=== PATIENT | male | born 1960 | race Caucasian/White ===

== ENCOUNTER 2020-12-18 17:30 | Inpatient (IN) | payer OTHER ==
[~2020-12-18] VITALS: Ht 167.6 cm; Wt 43.6 kg
[~2020-12-18 17:30] MED LIST: ACET325T51 PO; AMLO-258 PO; ASCO500T10 PO; BISA10S PR; DOCU-116 PO; LACT10SO9 PO; LACT1CAP78 PO; MOM30 PO; MULT-1271 PO; NITR0.4T SL; ONDA4SOL2 PO; PROT946L PO; TYL3 PO; ZINC1CAP3 PO
[2020-12-18 18:45] LABS: BASOPHILS % (AUTO) 0.2 % (0.0-5.0); LYMPHOCYTES % (AUTO) 2.3 % (21.0-51.0); MEAN CORPUSCULAR HEMOGLOBIN 28.6 pg (27.0-33.0); MEAN CORPUSCULAR HGB CONC 29.9 g/dL (32.0-36.0); MEAN CORPUSCULAR VOLUME 95.5 fL (79-99); MONOCYTES % (AUTO) 2.4 % (3.0-13.0); NEUTROPHILS % (AUTO) 93.4 % (40.0-77.0); PLATELET COUNT (AUTO) 458 K/uL (130-400); RED BLOOD CELL COUNT(AUTO) 1.54 MIL/uL (4.50-6.20); RED CELL DISTRIBUTION WIDTH 14.5 % (11.0-15.5); WHITE BLOOD COUNT (AUTO) 26.7 K/uL (4.8-10.8)
[2020-12-18 18:57] LABS: HEMATOCRIT 14.7 % (42-54)
[2020-12-18] MEDS ORDERED: ZOSYN 3.375GM+NS 50ML 50 ML IV ONE (19:18)
[2020-12-18] MEDS ORDERED: VANCOMYCIN 1G/250ML KIT 250 ML IV ONE (19:20)
[2020-12-18 19:25] LABS: INR 1.16 (0.85-1.15); PROTHROMBIN TIME 12.5 SEC (9.6-11.6)
[2020-12-18 19:27] LABS: PARTIAL THROMBOPLASTIN TIME 28.8 SEC (26.3-35.5)
[2020-12-18 19:42] LABS: BILIRUBIN,TOTAL 0.6 mg/dL (0.2-1.0); CREATININE 2.4 mg/dL (0.5-1.5); POTASSIUM 4.7 mmol/L (3.5-5.1); TOTAL PROTEIN, SERUM 7.6 g/dL (6.0-8.3)
[2020-12-19] MEDS ORDERED: VANCOMYCIN PROTOCOL PER PHARMACY IV SCH (12:00)
[2020-12-19] MEDS: 0.9%NACL 1000ML 1,000 ML IV SCH (12:00)
[2020-12-19 13:10] LABS: BASOPHILS % (AUTO) 0.2 % (0.0-5.0); EOSINOPHILS % (AUTO) 0.1 % (0.0-8.0); HEMATOCRIT 26.2 % (42-54); LYMPHOCYTES % (AUTO) 4.2 % (21.0-51.0); MEAN CORPUSCULAR HEMOGLOBIN 28.7 pg (27.0-33.0); MEAN CORPUSCULAR HGB CONC 32.1 g/dL (32.0-36.0); MEAN CORPUSCULAR VOLUME 89.4 fL (79-99); MONOCYTES % (AUTO) 3.2 % (3.0-13.0); NEUTROPHILS % (AUTO) 90.9 % (40.0-77.0); PLATELET COUNT (AUTO) 349 K/uL (130-400); RED BLOOD CELL COUNT(AUTO) 2.93 MIL/uL (4.50-6.20); RED CELL DISTRIBUTION WIDTH 14.7 % (11.0-15.5); WHITE BLOOD COUNT (AUTO) 18.9 K/uL (4.8-10.8)
[2020-12-19] MEDS ORDERED: PHARMACY COMMUNICATION MISC SCH (13:15)
[2020-12-19 13:20] LABS: CREATININE 2.2 mg/dL (0.5-1.5); POTASSIUM 4.7 mmol/L (3.5-5.1)
[2020-12-19 13:27] LABS: ALBUMIN 1.7 g/dL (3.5-5.0); TOTAL PROTEIN, SERUM 6.4 g/dL (6.0-8.3)
[2020-12-19] MEDS: PANTOPRAZOLE 40 MG/VIAL IVP SCH (14:15)
[2020-12-19 16:10] LABS: HEMATOCRIT 24.4 % (42-54)
[2020-12-19] MEDS ORDERED: PANTOPRAZOLE 40 MG/VIAL ONE (18:27)
[2020-12-19] MEDS ORDERED: GLUCAGON 1MG KIT 1 MG ML IM PRN (19:30)
[2020-12-19] MEDS ORDERED: KCL 20 MEQ ERTAB PO PRN (19:30)
[2020-12-19] MEDS ORDERED: LIDOCAINE HCL-MPF 1% 2ML VIAL IV PRN ×2 (19:30)
[2020-12-19] MEDS ORDERED: DEXTROSE 50%-WATER 50 ML DISP.SYRIN IV PRN (19:30)
[2020-12-19] MEDS ORDERED: POTASSIUM CHLORIDE 20MEQ/100ML 100 ML IV PRN ×2 (19:30)
[2020-12-19] MEDS ORDERED: MORPHINE 2 MG SYG IVP PRN (19:30)
[2020-12-19] MEDS ORDERED: MAGNESIUM 2GM PREMIX 50ML 50 ML IV PRN (19:30)
[2020-12-19] MEDS ORDERED: POTASSIUM CHLORIDE 10% ELIXIR 20 MEQ/15 ML UDCUP PO PRN (19:30)
[2020-12-19] MEDS: INSULIN HUMULIN R 100 UNIT/ML 3ML SQ SCH (21:00)
[2020-12-19] MEDS: ZOSYN 3.375GM+NS 50ML 50 ML IV SCH (21:00)
[2020-12-19 22:24] LABS: HEMATOCRIT 23.4 % (42-54)
[2020-12-19 23:29] VITALS: BP 110/62
[2020-12-20] VITALS: BP 110/62
[2020-12-20] MEDS: 0.9%NACL 1000ML 1,000 ML IV SCH ×2 (01:49→15:51)
[2020-12-20 03:20] LABS: BILIRUBIN,URINE Negative (NEGATIVE); COLOR,URINE Yellow (YELLOW); GLUCOSE, URINE (UA) Negative (NEGATIVE); KETONES,URINE Trace mg/dL (NEGATIVE); LEUKOCYTE ESTERASE ,URINE Large (NEGATIVE); NITRATE,URINE Positive (NEGATIVE); OCCULT BLOOD,URINE Small (NEGATIVE); PH,URINE 5.5 (5.0-8.0); PROTEIN,URINE Trace mg/dL (NEGATIVE)
[2020-12-20 03:24] LABS: APPEARANCE,URINE CLEAR (CLEAR)
[2020-12-20 03:34] LABS: BACTERIA,URINE Few /HPF (None Seen); WBC,URINE 26-50 /HPF (0-1)
[2020-12-20 03:35] LABS: SQUAMOUS EPITHELIAL CELL,UR 0-2 /HPF (0-2)
[2020-12-20 04:00] VITALS: BP 108/67
[2020-12-20 05:25] LABS: BASOPHILS % (AUTO) 0.3 % (0.0-5.0); EOSINOPHILS % (AUTO) 0.2 % (0.0-8.0); HEMATOCRIT 22.6 % (42-54); LYMPHOCYTES % (AUTO) 6.2 % (21.0-51.0); MEAN CORPUSCULAR HGB CONC 33.2 g/dL (32.0-36.0); MEAN CORPUSCULAR VOLUME 87.3 fL (79-99); MONOCYTES % (AUTO) 4.3 % (3.0-13.0); NEUTROPHILS % (AUTO) 87.3 % (40.0-77.0); PLATELET COUNT (AUTO) 274 K/uL (130-400); RED BLOOD CELL COUNT(AUTO) 2.59 MIL/uL (4.50-6.20); RED CELL DISTRIBUTION WIDTH 15.2 % (11.0-15.5); WHITE BLOOD COUNT (AUTO) 12.6 K/uL (4.8-10.8)
[2020-12-20] MEDS: INSULIN HUMULIN R 100 UNIT/ML 3ML SQ SCH ×4 (05:37→19:58)
[2020-12-20 05:43] LABS: MAGNESIUM 1.9 mg/dL (1.80-2.40)
[2020-12-20 08:31] VITALS: BP 99/62
[2020-12-20] MEDS: ZOSYN 3.375GM+NS 50ML 50 ML IV SCH ×2 (08:55→19:58)
[2020-12-20] MEDS: PANTOPRAZOLE 40 MG/VIAL IVP SCH ×2 (08:55→09:00)
[2020-12-20 13:52] VITALS: BP 109/61
[2020-12-20] MEDS ORDERED: COMPOUND IV REFRIGERATED 1 EACH IVSOLN MISC PRN (14:00)
[2020-12-20] MEDS: VANCOMYCIN 750MG + NS 250 ML IV SCH ×2 (15:51)
[2020-12-20 17:43] VITALS: BP 112/62
[2020-12-20 19:33] VITALS: BP 109/62
[2020-12-21] VITALS (7 sets, daily range): BP systolic 99–114; BP diastolic 55–64
[2020-12-21] MEDS: 0.9%NACL 1000ML 1,000 ML IV SCH ×2 (01:39→17:20)
[2020-12-21] MEDS: INSULIN HUMULIN R 100 UNIT/ML 3ML SQ SCH ×4 (05:14→20:22)
[2020-12-21] MEDS: PANTOPRAZOLE 40 MG/VIAL IVP SCH (09:18)
[2020-12-21] MEDS: ZOSYN 3.375GM+NS 50ML 50 ML IV SCH ×2 (09:19→20:22)
[2020-12-21] MEDS: VANCOMYCIN 750MG + NS 250 ML IV SCH ×2 (15:55)
[2020-12-22 03:48] VITALS: BP 106/63
[2020-12-22] MEDS: 0.9%NACL 1000ML 1,000 ML IV SCH ×2 (04:10→18:47)
[2020-12-22] MEDS: INSULIN HUMULIN R 100 UNIT/ML 3ML SQ SCH ×4 (06:18→20:24)
[2020-12-22 08:24] VITALS: BP 104/59
[2020-12-22] MEDS: PANTOPRAZOLE 40 MG/VIAL IVP SCH (08:54)
[2020-12-22] MEDS: ZOSYN 3.375GM+NS 50ML 50 ML IV SCH ×2 (08:54→20:24)
[2020-12-22 12:28] VITALS: BP 107/62
[2020-12-22] MEDS: VANCOMYCIN 750MG + NS 250 ML IV SCH ×2 (15:19)
[2020-12-22 16:05] VITALS: BP 107/62
[2020-12-22 19:37] VITALS: BP 119/65
[2020-12-22 23:24] VITALS: BP 100/59
[2020-12-23 03:47] VITALS: BP 104/60
[2020-12-23] MEDS: INSULIN HUMULIN R 100 UNIT/ML 3ML SQ SCH ×4 (05:47→21:00)
[2020-12-23] MEDS: 0.9%NACL 1000ML 1,000 ML IV SCH ×3 (06:09→21:46)
[2020-12-23 09:01] VITALS: BP 113/60
[2020-12-23] MEDS: PANTOPRAZOLE 40 MG/VIAL IVP SCH (09:07)
[2020-12-23] MEDS: ZOSYN 3.375GM+NS 50ML 50 ML IV SCH ×2 (09:07→21:45)
[2020-12-23 13:12] VITALS: BP 119/63
[2020-12-23 15:00] VITALS: BP 121/74
[2020-12-23] MEDS: VANCOMYCIN 750MG + NS 250 ML IV SCH ×2 (16:31)
[2020-12-23 19:30] VITALS: BP 121/68
[2020-12-23 23:56] VITALS: BP 118/70
[2020-12-24 03:49] VITALS: BP 125/70
[2020-12-24] MEDS: INSULIN HUMULIN R 100 UNIT/ML 3ML SQ SCH ×4 (06:20→21:00)
[2020-12-24 08:00] VITALS: BP 112/66
[2020-12-24] MEDS: PANTOPRAZOLE 40 MG/VIAL IVP SCH (08:51)
[2020-12-24] MEDS: ZOSYN 3.375GM+NS 50ML 50 ML IV SCH ×2 (08:51→22:28)
[2020-12-24 12:00] VITALS: BP 118/57
[2020-12-24] MEDS: 0.9%NACL 1000ML 1,000 ML IV SCH ×2 (12:00→22:28)
[2020-12-24 16:00] VITALS: BP 121/63
[2020-12-24] MEDS: VANCOMYCIN 750MG + NS 250 ML IV SCH ×2 (16:34)
[2020-12-24 19:20] VITALS: BP 124/70
[2020-12-24 23:25] VITALS: BP 123/76
[2020-12-25 04:08] VITALS: BP 114/63
[2020-12-25] MEDS: INSULIN HUMULIN R 100 UNIT/ML 3ML SQ SCH ×4 (06:32→20:12)
[2020-12-25 08:00] VITALS: BP 115/61
[2020-12-25] MEDS: ZOSYN 3.375GM+NS 50ML 50 ML IV SCH ×2 (09:33→20:04)
[2020-12-25] MEDS: PANTOPRAZOLE 40 MG/VIAL IVP SCH (09:33)
[2020-12-25] MEDS: 0.9%NACL 1000ML 1,000 ML IV SCH (09:35)
[2020-12-25 11:41] VITALS: BP 117/66
[2020-12-25 15:40] VITALS: BP 111/67
[2020-12-25 19:10] VITALS: BP 114/61
[2020-12-25 23:36] VITALS: BP 126/71
[2020-12-26 03:54] VITALS: BP 121/63
[2020-12-26] MEDS: 0.9%NACL 1000ML 1,000 ML IV SCH ×2 (05:22→16:49)
[2020-12-26] MEDS: INSULIN HUMULIN R 100 UNIT/ML 3ML SQ SCH ×4 (05:25→20:58)
[2020-12-26 08:00] VITALS: BP 104/60
[2020-12-26] MEDS: PANTOPRAZOLE 40 MG/VIAL IVP SCH (10:29)
[2020-12-26] MEDS: ZOSYN 3.375GM+NS 50ML 50 ML IV SCH ×2 (10:29→21:01)
[2020-12-26 11:00] VITALS: BP 105/55
[2020-12-26] MEDS ORDERED: LIDOCAINE HCL-MPF 1% 2ML VIAL IV SCH (13:00)
[2020-12-26] MEDS ORDERED: VANCOMYCIN 500MG+NS 100ML 100 ML IV SCH (16:00)
[2020-12-26 18:20] VITALS: BP 117/63
[2020-12-26 20:00] VITALS: BP 111/65
[2020-12-26 23:41] VITALS: BP 131/69
[2020-12-27 03:43] VITALS: BP 109/59
[2020-12-27] MEDS: 0.9%NACL 1000ML 1,000 ML IV SCH (06:44)
[2020-12-27] MEDS: INSULIN HUMULIN R 100 UNIT/ML 3ML SQ SCH ×2 (06:44→11:30)
[2020-12-27 07:37] VITALS: BP 110/53
[2020-12-27] MEDS: PANTOPRAZOLE 40 MG/VIAL IVP SCH (09:57)
[2020-12-27] MEDS: ZOSYN 3.375GM+NS 50ML 50 ML IV SCH (09:57)
[2020-12-27 10:48] VITALS: BP 102/52
[2020-12-27 15:10] VITALS: BP 114/58
== END 2020-12-27 16:22 | disposition hospice, home (50) | DRG 503 ==
LOC: EDH 17:30 → EDHIP 20:30 → 3AH 12-19 22:35
PROVIDERS: ADMIT Internal Medicine; ATTEND Internal Medicine
PROC: 30233N1 Transfusion of Nonautologous Red Blood Cells into Peripheral Vein, Percutaneous Approach (ICD-10-PCS; 2020-12-18)
PROC: 0QBM0ZZ Excision of Left Tarsal, Open Approach (ICD-10-PCS; principal; 2020-12-22)
DX: T87.44 Infection of amputation stump, left lower extremity (principal); A41.9 Sepsis, unspecified organism; A48.0 Gas gangrene; D65 Disseminated intravascular coagulation [defibrination syndrome]; E43 Unspecified severe protein-calorie malnutrition; N18.6 End stage renal disease; M72.6 Necrotizing fasciitis; R65.21 Severe sepsis with septic shock; C15.9 Malignant neoplasm of esophagus, unspecified; N17.9 Acute kidney failure, unspecified; Z68.1 Body mass index [BMI] 19.9 or less, adult; E87.1 Hypo-osmolality and hyponatremia; E11.52 Type 2 diabetes mellitus with diabetic peripheral angiopathy with gangrene; R64 Cachexia; I12.0 Hypertensive chronic kidney disease with stage 5 chronic kidney disease or end stage renal disease; L97.409 Non-pressure chronic ulcer of unspecified heel and midfoot with unspecified severity; M86.9 Osteomyelitis, unspecified; L03.90 Cellulitis, unspecified; Z85.828 Personal history of other malignant neoplasm of skin; Z20.822 Contact with and (suspected) exposure to COVID-19; D64.9 Anemia, unspecified; E11.51 Type 2 diabetes mellitus with diabetic peripheral angiopathy without gangrene; E11.22 Type 2 diabetes mellitus with diabetic chronic kidney disease; Z51.5 Encounter for palliative care; Z93.1 Gastrostomy status; C44.90 Unspecified malignant neoplasm of skin, unspecified; E86.0 Dehydration; E83.51 Hypocalcemia; Z66 Do not resuscitate; E11.621 Type 2 diabetes mellitus with foot ulcer; E11.69 Type 2 diabetes mellitus with other specified complication; C10.9 Malignant neoplasm of oropharynx, unspecified; E78.5 Hyperlipidemia, unspecified
CPT/HCPCS: 36415; 71045; 73630; 80048; 80053; 80202; 81001; 82550; 82948; 83605; 83735; 84484; 85014; 85018; 85025; 85610; 85730; 86850; 86900; 86901; 86923; 87040; 87077; 87088; 87186; 87426; 92610; 93005; 99291; C9113; G0378; J2543; J3370; J3475; J7030; J7050; P9016; U0003